=== PATIENT | female | born 1965 | race Native Hawaiian/Other Pacific Islander ===

== ENCOUNTER 2018-11-24 07:41 | Day surgery (SDC) | payer BC ==
[~2018-11-24] VITALS: Ht 30.5 cm; Wt 0.5 kg
[2018-11-24 08:16] LABS: PLATELET COUNT 136 K/uL (152-353)
[2018-11-24 08:23] LABS: POTASSIUM 3.4 mmol/L (3.6-5.2)
== END 2018-11-24 14:20 | disposition home or self-care (01) ==
LOC: OR 07:41
PROVIDERS: Student in an Organized Health Care Education/Training Program
PROC: 0HQ0XZZ Repair Scalp Skin, External Approach (ICD-10-PCS; principal; 2018-11-24)
PROC: 0JB00ZZ Excision of Scalp Subcutaneous Tissue and Fascia, Open Approach (ICD-10-PCS; 2018-11-24)
DX: D17.0 Benign lipomatous neoplasm of skin and subcutaneous tissue of head, face and neck (principal)
CPT/HCPCS: 80053; 85027; J0690; J1100; J1170; J2001; J2250; J2405; J2704; J3010; J3490

== ENCOUNTER 2020-02-09 10:50 | Outpatient (CLI) | payer OTHER ==
[2020-02-09 12:17] LABS: PLATELET COUNT 103 K/uL (152-353)
[2020-02-09 15:38] LABS: POTASSIUM 2.9 mmol/L (3.6-5.2)
== END 2020-02-09 22:01 | disposition home or self-care (01) ==
LOC: RAD 10:50
PROVIDERS: Nurse Practitioner Family
DX: Z00.00 Encounter for general adult medical examination without abnormal findings (principal); E11.9 Type 2 diabetes mellitus without complications; E78.5 Hyperlipidemia, unspecified; Z79.899 Other long term (current) drug therapy; R10.11 Right upper quadrant pain; K62.5 Hemorrhage of anus and rectum; K59.00 Constipation, unspecified; R53.83 Other fatigue
CPT/HCPCS: 36415; 80053; 80061; 82150; 83036; 83690; 84443; 85027

== ENCOUNTER 2020-03-02 13:24 | Outpatient (CLI) | payer OTHER | END 2020-03-02 23:40 | disposition home or self-care (01) | LOC: MAMMO 13:24 | DX: N63.20 Unspecified lump in the left breast, unspecified quadrant (principal) ==

== ENCOUNTER 2020-03-15 14:41 | Outpatient (CLI) | payer OTHER ==
[~2020-03-15] VITALS: Ht 30.5 cm; Wt 0.5 kg
== END 2020-03-15 19:11 | disposition home or self-care (01) ==
LOC: US 14:41
DX: R92.8 Other abnormal and inconclusive findings on diagnostic imaging of breast (principal)

== ENCOUNTER 2021-01-18 10:19 | Outpatient (CLI) | payer OTHER | END 2021-01-18 20:32 | disposition home or self-care (01) | LOC: MAMMO 10:19 | PROVIDERS: ATTEND Nurse Practitioner Family | DX: Z12.31 Encounter for screening mammogram for malignant neoplasm of breast (principal) ==